=== PATIENT | female | born 1995 | race Caucasian/White ===

== ENCOUNTER 2020-10-27 09:52 | Observation (INO) | payer OTHER ==
[2020-10-27 11:04] VITALS: BP 109/62
[2020-10-27 11:36] VITALS: PULSE 86
== END 2020-10-27 11:20 | disposition home or self-care (01) ==
LOC: MED SURG 09:52
PROVIDERS: ADMIT Family Medicine; ATTEND Family Medicine
DX: O24.419 Gestational diabetes mellitus in pregnancy, unspecified control (principal); Z3A.26 26 weeks gestation of pregnancy
CPT/HCPCS: 59025; G0378

== ENCOUNTER 2020-11-10 10:39 | Observation (INO) | payer OTHER ==
[2020-11-10 10:54] VITALS: BP 124/68; PULSE 87
== END 2020-11-10 11:40 | disposition home or self-care (01) ==
LOC: OB 10:39
PROVIDERS: ADMIT Family Medicine; ATTEND Family Medicine
DX: O24.419 Gestational diabetes mellitus in pregnancy, unspecified control (principal); Z3A.28 28 weeks gestation of pregnancy
CPT/HCPCS: 59025; G0378

== ENCOUNTER 2020-12-12 08:37 | Observation (INO) | payer OTHER ==
[2020-12-12 09:42] VITALS: BP 119/70; PULSE 99
--- NOTE | 2020-12-12 09:47 | XRAY ---
Indication: Size greater than dates. Ultrasound biophysical profile exam performed. Single intrauterine with heart rate 150 BPM. Four-quadrant LANG is 11.7 cm, largest pocket 8.7 cm. 2 points given for breathing, movements, tone, and qualitative amniotic fluid volume. Impression: Total biophysical profile score is 8 out of 8.
== END 2020-12-12 10:12 | disposition home or self-care (01) ==
LOC: EDSTATUS 08:58 → OB 08:59
PROVIDERS: ADMIT Family Medicine; ATTEND Family Medicine
DX: O24.419 Gestational diabetes mellitus in pregnancy, unspecified control (principal); Z3A.33 33 weeks gestation of pregnancy
CPT/HCPCS: 59025; 76818; G0378

== ENCOUNTER 2020-12-19 08:49 | Observation (INO) | payer OTHER ==
[2020-12-19 09:45] VITALS: BP 112/58; PULSE 77; O2SAT 97
--- NOTE | 2020-12-20 10:06 | XRAY ---
Exam: OB biophysical profile with nonstress from 12/19/2020. Comparison: OB biophysical profile with nonstress from 12/12/2020. Indication: Gestational diabetes. Findings: A single live intrauterine fetus is seen with a heart rate of 163 bpm. 4 quadrant LANG measured 13.3 cm, previously 11.7 cm. The placenta appears to be anterior. The fetus scored 2 points for each of the categories including breathing movements, gross body movements, tone, and qualitative amniotic fluid volume for a score of 8 points out of a maximum of 8 points. This is unchanged. Impression: 1. Biophysical profile score is 8 points out of a maximum of 8 points, no change from 12/12/2020. 2. LANG measured 13.3 cm, previously 11.7 cm. 3. heart rate was 163 bpm.
== END 2020-12-19 10:10 | disposition home or self-care (01) ==
LOC: OB 08:49
PROVIDERS: ADMIT Family Medicine; ATTEND Family Medicine
DX: O24.419 Gestational diabetes mellitus in pregnancy, unspecified control (principal); Z3A.34 34 weeks gestation of pregnancy
CPT/HCPCS: 59025; 76818; G0378

== ENCOUNTER 2020-12-26 08:24 | Observation (INO) | payer OTHER ==
[2020-12-26 08:58] VITALS: BP 126/60; PULSE 83; O2SAT 99
--- NOTE | 2020-12-26 09:17 | XRAY ---
Indication: well-being. Ultrasound biophysical profile study performed and compared to December 19, 2020. Again single viable intrauterine with heart rate 155 BPM. Four-quadrant LANG is 14 cm, largest pocket 4.7 cm. 2 points given for breathing, movements, tone, and qualitative amniotic fluid volume. Impression: Total biophysical profile score remains 8 out of 8.
== END 2020-12-26 09:55 | disposition home or self-care (01) ==
LOC: MED SURG 08:24
PROVIDERS: ADMIT Family Medicine; ATTEND Family Medicine
DX: O24.419 Gestational diabetes mellitus in pregnancy, unspecified control (principal); Z3A.35 35 weeks gestation of pregnancy
CPT/HCPCS: 59025; 76818; G0378

== ENCOUNTER 2021-01-02 08:39 | Observation (INO) | payer OTHER ==
[2021-01-02 09:42] VITALS: BP 123/66; PULSE 90
--- NOTE | 2021-01-02 10:05 | XRAY ---
Indication: Gestational diabetes. Ultrasound biophysical profile study performed and compared to December 26, 2020. Again single viable intrauterine with heart rate 148 BPM. Four-quadrant LANG is 15.9 cm, largest pocket 8.1 cm. 2 points given for breathing, movements, tone, and qualitative amniotic fluid volume. Impression: Total biophysical profile score remains 8 out of 8.
== END 2021-01-02 10:20 | disposition home or self-care (01) ==
LOC: OB 08:39
PROVIDERS: ADMIT Family Medicine; ATTEND Family Medicine
DX: O24.419 Gestational diabetes mellitus in pregnancy, unspecified control (principal); Z3A.36 36 weeks gestation of pregnancy
CPT/HCPCS: 59025; 76818; G0378

== ENCOUNTER 2021-01-10 08:38 | Observation (INO) | payer OTHER ==
--- NOTE | 2021-01-10 09:37 | XRAY ---
Indication: Gestational diabetes. Ultrasound biophysical profile study performed and compared to January 02, 2021. Again single viable intrauterine with heart rate 146 BPM. Four-quadrant LANG is 11.3 cm, largest pocket 5.9 cm. 2 points given for breathing, movements, tone, and qualitative amniotic fluid volume. Impression: Total biophysical profile score remains 8 out of 8.
[2021-01-10 09:40] VITALS: BP 110/71; PULSE 110
== END 2021-01-10 10:00 | disposition home or self-care (01) ==
LOC: OB 08:38
PROVIDERS: ADMIT Family Medicine; ATTEND Family Medicine
DX: O24.419 Gestational diabetes mellitus in pregnancy, unspecified control (principal); Z3A.37 37 weeks gestation of pregnancy
CPT/HCPCS: 59025; 76818; G0378

== ENCOUNTER 2021-01-16 09:36 | Inpatient (IN) | payer OTHER ==
[2021-01-18] MEDS ORDERED: Reglan 10 MG/2 ML IV SCH (05:00)
[2021-01-18] MEDS ORDERED: Pepcid 20 MG VIAL IV SCH (05:00)
[2021-01-18] MEDS ORDERED: Lactated Ringers 1,000 ML IV ONE (05:00)
[2021-01-18] MEDS ORDERED: SOD CITRATE-CITRIC ACID SOLN PO SCH (05:00)
[2021-01-18] MEDS ORDERED: Lactated Ringers 1,000 ML IV SCH (05:00)
[2021-01-18] MEDS ORDERED: CEFAZOLIN 2 GM-D5W BAG** 2 GM/50 ML ML IV SCH (05:00)
[2021-01-18 06:38] LABS: Hemoglobin 10.7 gm/dl (12.0-16.0); Mean Cell Volume 91.4 fl (78-100); Mean Corpuscular Hemoglobin 29.6 pg (26-32); Mean Corpuscular Hgb Concent. 32.4 g/dl (32-36); Mean Platelet Volume 11.1 fl (7.5-11.0); Platelet Count 165 K/mm3 (150-450); Red Blood Count 3.61 M/mm3 (4.1-5.4); White Blood Count 6.5 K/mm3 (4.0-10.5)
[2021-01-18 06:43] LABS: INR 0.93 (0.8-3.0)
[2021-01-18 06:45] LABS: PTT 26.7 SECONDS (25.1-36.5)
[2021-01-18 07:05] LABS: Appearance CLOUDY (CLEAR); Bacteria MODERATE /HPF (NEGATIVE); Bilirubin NEGATIVE (NEGATIVE); Blood NEGATIVE Ery/ul (0-5); Epithelial Cells FEW /HPF (FEW); Glucose NEGATIVE (NEGATIVE); Ketones NEGATIVE (NEGATIVE); Leukocyte Esterase TRACE (NEGATIVE); Mucus SLIGHT /HPF (NEGATIVE); Nitrite NEGATIVE (NEGATIVE); Protein,Urine Dip 30 (Negative); Specific Gravity 1.018 (1.005-1.025); Urobilinogen NEGATIVE mg/dL (0-1)
[2021-01-18 07:06] LABS: Amphetamine,Urine NEGATIVE (NEGATIVE); Barbiturate,Urine NEGATIVE (NEGATIVE); Benzodiazepine,Urine NEGATIVE (NEGATIVE); Cocaine,Urine NEGATIVE (NEGATIVE); Methadone,Urine NEGATIVE (NEGATIVE); Opiate,Urine NEGATIVE (NEGATIVE); PCP,Urine NEGATIVE (NEGATIVE); THC,Urine NEGATIVE (NEGATIVE)
[2021-01-18 07:37] LABS: ABO TYPING O; Antibody Screen NEGATIVE (NEGATIVE); RH TYPING NEGATIVE
[2021-01-18] MEDS ORDERED: Astramorph-Pf 5 MG/10 ML ONE (08:02)
[2021-01-18] MEDS ORDERED: Pitocin 10 UNITS/ML ONE (08:48)
[2021-01-18] MEDS ORDERED: Decadron 4 MG INJ ONE ×2 (08:51)
[2021-01-18] MEDS ORDERED: Naropin 0.5% 30 ML VIAL ONE (08:51)
[2021-01-18] MEDS ORDERED: EPINEPHRINE 1MG/ML AMP ONE (08:51)
[2021-01-18] MEDS ORDERED: TORAdol 30 mg Injection ONE (08:51)
[2021-01-18] MEDS ORDERED: DEMEROL 50 MG IV PRN (09:00)
[2021-01-18] MEDS ORDERED: PERCOCET TABLET 5/325MG PO PRN (09:00)
[2021-01-18] MEDS ORDERED: HOLD NARCOTIC ANALGESICS AND SEDATIVES X24 HR MC PRN (09:00)
[2021-01-18] MEDS ORDERED: Nubain 10 MG/ML IV PRN (09:00)
[2021-01-18] MEDS ORDERED: Dulcolax 10 MG SUPP PR PRN (09:00)
[2021-01-18] MEDS ORDERED: TYLENOL EXTRA STRENGTH 500 MG PO PRN (09:00)
[2021-01-18] MEDS ORDERED: BENADRYL 50 MG/ML IV PRN (09:00)
[2021-01-18] MEDS ORDERED: MORPHINE SULFATE 2 MG INJ IV PRN (09:00)
[2021-01-18] MEDS ORDERED: Anucort-HC SUPPOSITORY PR PRN (09:00)
[2021-01-18] MEDS ORDERED: CLARITIN 10 MG PO PRN (09:00)
[2021-01-18] MEDS ORDERED: LANSINOH 40 GM TOP PRN (09:00)
[2021-01-18] MEDS ORDERED: Mylicon 80MG PO PRN (09:00)
[2021-01-18] MEDS ORDERED: CORTISONE 1% CREAM TP PRN (09:00)
[2021-01-18] MEDS ORDERED: Narcan 0.4 MG/ML IV PRN (09:00)
[2021-01-18] MEDS ORDERED: Dermoplast Spray TP PRN (09:00)
[2021-01-18 10:57] LABS: Appearance CLEAR (CLEAR); Bilirubin NEGATIVE (NEGATIVE); Blood NEGATIVE Ery/ul (0-5); Glucose NEGATIVE (NEGATIVE); Ketones NEGATIVE (NEGATIVE); Leukocyte Esterase NEGATIVE (NEGATIVE); Mucus SLIGHT /HPF (NEGATIVE); Nitrite NEGATIVE (NEGATIVE); Protein,Urine Dip NEGATIVE (Negative); RBC 0-2 /HPF (0-2); Specific Gravity 1.018 (1.005-1.025); Urobilinogen NEGATIVE mg/dL (0-1); WBC 0-2 /HPF (0-5)
[2021-01-18 11:03] LABS: Bacteria FEW /HPF (NEGATIVE); Epithelial Cells RARE /HPF (FEW)
--- NOTE | 2021-01-18 11:30 | OP ---
SURGERY DATE/TIME: 01/18/2021 0810 PREOPERATIVE DIAGNOSES: 1) History of prior section. 2) Gestational diabetes, diet controlled. 3) macrosomia. 4) SARS-CoV-2 infection. 5) Desires permanent sterilization. POSTOPERATIVE DIAGNOSES: 1) History of prior section. 2) Gestational diabetes, diet controlled. 3) macrosomia. 4) SARS-CoV-2 infection. 5) Desires permanent sterilization. PROCEDURES: 1) Repeat low transverse section. 2) Bilateral tubal ligation. SURGEON: Michael Infante M.D. ESTIMATED BLOOD LOSS: 300 ml. IV FLUIDS: 2800 ml of crystalloid. URINE OUTPUT: 400 cc of clear straw-colored urine. ANESTHESIA: Spinal by Raymond Marcial CRNA. SPECIMENS: Placenta was sent for pathology. INDICATION: The patient is a 25-year-old 3, para 2 who was scheduled for repeat section. She arrived this morning to the hospital with complaints of mild sinus congestion. No cough. No shortness of breath. No fever. She was found to have COVID-positive swab this morning so she was continued with routine scheduled repeat section today. She had previously consented in the office to bilateral tubal ligation and I again reviewed the permanent nature of tubal ligation and alternative forms of contraception. She elected to proceed with tubal ligation as well. DESCRIPTION OF PROCEDURE: She underwent spinal anesthesia, had a Seaman catheter inserted in the OR and was prepped and draped in the usual sterile fashion with tent up drape was used due to obesity. The patient has a BMI of 40.8 kg per meter/sq. She was prepped and draped. Anesthesia verified to be adequate. A low transverse skin incision by knife and carried down through subcutaneous fat to the level of the fascia. The fascia was nicked on both sides of the midline and extended in horizontal using curved Flower scissors. The superior free edge of the fascia was grasped with Cookie clamps and the underlying rectus muscles were dissected free. The same was repeated inferiorly. The peritoneal cavity was opened and extended horizontal bluntly. Bladder flap was then created and reflected over the lower uterine segment. A horizontal uterine incision was made by knife and carried down to the level of the amniotic membranes which were carefully artificially ruptured. Clear fluid was encountered. Macrosomic viable female infant was delivered from the vertex presentation with a strong cry present immediately after bulb suctioning oropharynx and nares. The cord was clamped and cut. She was handed off to the awaiting nursey team. The placenta was manually extracted and the uterus was exteriorized. The uterine cavity was sponge curetted clean with lap sponge and the uterine incision was closed with #1 chromic in running locked fashion. It was closed in two layers with good hemostasis and good closure. The left fallopian tube was then grasped with a Maik and electrocautery used to make a window in the mesoappendix. The proximal and distal tube segments were then ligated with 0 chromic tie. The interceding tube segment was dissected free with Metzenbaum scissors and the free edge of the lumen was cauterized with electrocautery. The same was repeated on the right side with no complications. Both tube segments were sent for pathology. The posterior cul-de-sac was wiped free of blood and clot and the uterus was returned to the peritoneal cavity. Lateral gutters were wiped free of blood and clot. Again, the uterine incision was noted to be hemostatic with good closure. Next, the fascia was closed with 0 Vicryl in a running fashion. Good closure and good hemostasis were achieved at this level as well. Subcutaneous fat was irrigated with warm, sterile saline and any areas of bleeding were cauterized with electrocautery at that point. Finally, the skin layer was closed with 4-0 undyed Vicryl in a running subcuticular fashion. Steri-Strips and occlusive dressing were placed over the incision. The patient was sent to recovery in good condition. She remained alert and hemodynamically stable through the entirety of the procedure with no respiratory issues. All staff that performed this procedure were wearing N95 face masks and eye protection as indicated.
[2021-01-18] MEDS: Zofran 4 MG/2 ML VIAL IV PRN ×2 (13:43→20:53)
[2021-01-18] MEDS: Dextrose 5%-Lr IV Solution 1000 ML 1,000 ML IV SCH ×3 (18:19→22:26)
[2021-01-18] MEDS: Colace 100 MG PO SCH ×2 (20:48→20:54)
[2021-01-18] MEDS: FERREX 150 PO SCH (20:49)
[2021-01-18] MEDS: MOTRIN 400 MG PO PRN (23:23)
[2021-01-19 06:08] LABS: Absolute Neutrophil Ct (ANC) 5.48 (1.4-6.9); BASOPHIL % 0.2 % (0.0-0.4); Basophil (Absolute #) 0.02 (0-0.4); Eosinophil % 0.2 % (0.00-5.0); Eosinophil (Absolute #) 0.02 (0-0.5); Hematocrit 27.6 % (35-47); Hemoglobin 8.7 gm/dl (12.0-16.0); Lymphocyte (Absolute #) 2.14 (1.0-4.6); Lymphocytes % 25.2 % (24.0-44.0); Mean Cell Volume 92.3 fl (78-100); Mean Corpuscular Hemoglobin 29.1 pg (26-32); Mean Corpuscular Hgb Concent. 31.5 g/dl (32-36); Mean Platelet Volume 11.3 fl (7.5-11.0); Monocyte (Absolute #) 0.83 (0.0-1.3); Monocytes % 9.8 % (0.0-12.0); Neutrophil % 64.6 % (36.0-66.0); Platelet Count 161 K/mm3 (150-450); Red Blood Count 2.99 M/mm3 (4.1-5.4); Red Cell Distribution Width 14.1 % (11.5-14.0); White Blood Count 8.5 K/mm3 (4.0-10.5)
[2021-01-19] MEDS: Dextrose 5%-Lr IV Solution 1000 ML 1,000 ML IV SCH (07:49)
[2021-01-19] MEDS: FERREX 150 PO SCH (10:13)
[2021-01-19] MEDS: Colace 100 MG PO SCH ×2 (10:13→22:46)
[2021-01-19] MEDS: NORCO 5/325 MG PO PRN ×2 (16:26→23:14)
[2021-01-19] MEDS: MOTRIN 400 MG PO PRN (19:41)
[2021-01-20] MEDS: MOTRIN 400 MG PO PRN ×2 (02:30→08:18)
[2021-01-20] MEDS: NORCO 5/325 MG PO PRN (07:17)
[2021-01-20] MEDS: Colace 100 MG PO SCH (08:18)
[2021-01-20] MEDS: FERREX 150 PO SCH (08:18)
--- NOTE | 2021-01-20 08:32 | PCM.DS ---
Discharge Summary Date of Admission: 01/18/21 05:11 Admitting Physician: ANALILIA BECKMAN Consults: Consults on Case 01/18/21 05:00 Notify Anesthesia Provider ROUTINE Notify Physician OF ADMISSION 01/18/21 12:13 Navigation ONCE Primary Care Provider: ANALILIA BECKMAN Allergies Allergies No Known Drug Allergies Allergy (Verified 01/02/21 09:42) Hospital Summary - Hospital Course Hospital Course: patient term IUP with hx of GDM, prior arrived for repeat c/s with BTL, had a week history of congestion and tested covid+. had uneventful surgical, post-op course. doing great, minimal pain, mild lochia, no cough or fever and congestion has resolved. - Vitals & Intake/Output Vital Signs: Vital Signs Temperature 98.6 F 01/20/21 01:16 Pulse Rate 73 01/20/21 01:16 Respiratory Rate 18 01/20/21 01:16 Blood Pressure 127/65 01/20/21 01:16 O2 Sat by Pulse Oximetry 96 01/20/21 01:16 Intake & Output: Intake & Output 01/17/21 01/18/21 01/19/21 01/20/21 11:59 11:59 11:59 11:59 Intake Total 5088 1300 Output Total 1850 Balance 3238 1300 Weight 111.13 kg - Lab Result Diagrams: 01/19/21 05:50 Lab Results-Last 24 Hrs: Lab Results-Last 24 Hours 01/19/21 01/19/21 01/19/21 Range/Units 08:33 12:22 16:30 POC Glucometer 82 82 124 H (74 to 106) mg/dL 01/19/21 Range/Units 23:21 POC Glucometer 91 (74 to 106) mg/dL Micro Results-Entire Visit: Microbiology 01/18/21 08:32 Urine Culture - Final Catherized NO GROWTH 01/18/21 06:49 Urine Culture - Final Clean Catch Midstream MIXED ALEA; 3 OR MORE TYPES. NO PREDOMINANT ORGANISM. NO FURTHER WORKUP. PLEASE RESUBMIT IF CLINICALLY INDICATED. - Procedures and Test Procedures and Tests throughout Hospitalization: Therapy Orders & Screens 01/18/21 10:11 Standby STAT Comment: Diagnosis: Repeat Section Discharge Exam General Appearance: no apparent distress, alert, obese Respiratory Exam: normal breath sounds, lungs clear, No respiratory distress Cardiovascular Exam: regular rate/rhythm, normal heart sounds Gastrointestinal/Abdomen Exam: soft, other (incision clean, dry, intact and looks great) Extremity Exam: normal inspection, normal range of motion Skin Exam: normal color, warm, dry Final Diagnosis/Problem List - Final Discharge Diagnosis/Problem (1) delivery delivered Current Visit: Yes Status: Acute Code(s): O82 - ENCOUNTER FOR DELIVERY WITHOUT INDICATION (2) Gestational diabetes Current Visit: Yes Status: Acute Code(s): O24.419 - GESTATIONAL DIABETES MELLITUS IN , UNSP CONTROL (3) Hx of tubal ligation Current Visit: Yes Status: Acute Code(s): Z98.51 - TUBAL LIGATION STATUS (4) COVID-19 affecting in third trimester Current Visit: Yes Status: Acute Assessment & Plan: symptoms began last saturday so today is day #11, symptoms are resolved. home today with baby Code(s): O98.513 - OTHER VIRAL DISEASES COMPLICATING , THIRD TRIMESTER; U07.1 - COVID-19 - Discharge Disposition: Home, Self-Care Condition: Stable Prescriptions: New Docusate Sodium 100 mg [Colace 100 MG] 100 mg PO BID #60 Hydrocodone/Acetaminophen [Hydrocodone-Acetamin 5-325 mg] 1 tab PO Q6HPRN PRN #28 tablet MDD 4 PRN Reason: Pain Continue Ferrous Sulfate 325 mg [Feosol 325 mg] 325 mg PO DAILY Discontinued Vits W-Ca,Fe,FA(<1Mg) [] 1 each PO DAILY Aspirin 81 gm Chew [Baby Aspirin 81 mg Chew] 81 mg PO DAILY Follow up with: ANALILIA BECKMAN MD [Primary Care Provider] - 1 Week
[2021-01-20 12:33] VITALS: BP 114/64; PULSE 69; O2SAT 97
== END 2021-01-20 11:30 | disposition home or self-care (01) | DRG 783 ==
LOC: EDSTATUS 12:53 → OB 01-18 05:11 → MED SURG 01-18 12:08
PROVIDERS: ADMIT Family Medicine; ATTEND Family Medicine
PROC: 10D00Z1 Extraction of Products of Conception, Low, Open Approach (ICD-10-PCS; principal; 2021-01-18)
PROC: 0U570ZZ Destruction of Bilateral Fallopian Tubes, Open Approach (ICD-10-PCS; 2021-01-18)
DX: O98.52 Other viral diseases complicating childbirth (principal); U07.1 COVID-19; O34.219 Maternal care for unspecified type scar from previous cesarean delivery; O24.420 Gestational diabetes mellitus in childbirth, diet controlled; O36.63X0 Maternal care for excessive fetal growth, third trimester, not applicable or unspecified; Z3A.38 38 weeks gestation of pregnancy; Z37.0 Single live birth; Z30.2 Encounter for sterilization; Z20.822 Contact with and (suspected) exposure to COVID-19
CPT/HCPCS: 36415; 64488; 76937; 76942; 80307; 81001; 82947; 85025; 85027; 85610; 85730; 86850; 86900; 86901; 87086; 88302; 88307; 94799; J0171; J0690; J1100; J1885; J2274; J2405; J2590; J2795; L0625; U0003; A9270-GY

== ENCOUNTER 2023-08-14 01:04 | Observation (INO) | payer OTHER ==
--- NOTE | 2023-08-14 01:28 | ERPHSYRPT ---
- History of Present Illness Time Seen by Provider: 08/14/23 01:20 Source: patient Exam Limitations: no limitations Patient Subjective Stated Complaint: stated fever at home, headache, R flank pain, and vomiting x2 that started yesterday Triage Nursing Assessment: pt ambulatory to bed by self with steady gait, father at bedside, pt afebrile, skin pwd, pt c/o stated fever at home with the highest being 99.6, pounding NEWSOME, and R flank pain since yesterday. pt denies any nausea or diarrhea but states she did throw up twice within the last 12 hrs. Physician History: 27-year-old female presents from her ED for evaluation of right flank pain and vomiting. Patient also has a headache. Symptoms started yesterday. Patient states she had a fever of 99.6 at home. She took Tylenol just prior to arrival and urinated as well. Patient denies history of UTI or kidney stones. Symptoms have been progressive. Symptoms are moderate in intensity. No specific worsening improving factors. Patient voices no other complaints or concerns at this time. Portions of this note were created with voice recognition technology. There may be grammatical, spelling, punctuation or sound alike errors Timing/Duration: today Severity: moderate Modifying Factors: Improves With: nothing Associated Symptoms: denies symptoms Allergies/Adverse Reactions: No Known Drug Allergies Allergy (Verified 08/14/23 01:10) Home Medications: No Reportable Medications [No Reported Medications] 08/14/23 [History] Hx Tetanus, Diphtheria Vaccination/Date Given: Yes Hx Influenza Vaccination/Date Given: No Hx Pneumococcal Vaccination/Date Given: No Immunizations Up to Date: No Travel Risk - International Travel Have you traveled outside of the country in past 3 weeks: No - Emerging Infectious Disease Are you exhibiting symptoms associated with any current EIDs: Yes Symptoms: Vomitting - Review of Systems Constitutional: No Symptoms, No Fever, No Chills Eyes: No Symptoms Ears, Nose, & Throat: No Symptoms Respiratory: No Symptoms, No Cough, No Dyspnea Cardiac: No Symptoms, No Chest Pain, No Edema, No Syncope Abdominal/Gastrointestinal: No Symptoms, No Abdominal Pain, No Nausea, No V omiting, No Diarrhea Genitourinary Symptoms: No Symptoms, No Dysuria Musculoskeletal: No Symptoms, No Back Pain, No Neck Pain Skin: No Symptoms, No Rash Neurological: No Symptoms, No Dizziness, No Focal Weakness, No Sensory Changes Psychological: No Symptoms Endocrine: No Symptoms Hematologic/Lymphatic: No Symptoms Immunological/Allergic: No Symptoms All Other Systems: Reviewed and Negative - Past Medical History Pertinent Past Medical History: Yes Neurological History: Migraines ENT History: No Pertinent History Cardiac History: No Pertinent History Respiratory History: No Pertinent History Endocrine Medical History: No Pertinent History Musculoskeletal History: No Pertinent History GI Medical History: No Pertinent History History: No Pertinent History Psycho-Social History: No Pertinent History Female Reproductive Disorders: No Pertinent History - Past Surgical History Past Surgical History: Yes Neuro Surgical History: No Pertinent History Cardiac: No Pertinent History Respiratory: No Pertinent History Gastrointestinal: Cholecystectomy Genitourinary: No Pertinent History Musculoskeletal: No Pertinent History Female Surgical History: Section - Female History Hx Last Menstrual Period: 08/14/23 Hx Now: No - Social History Smoking Status: Never smoker Exposure to second hand smoke: No Drug Use: none - Nursing Vital Signs Nursing Vital Signs: Initial Vital Signs Temperature 98.9 F 08/14/23 01:11 Pulse Rate 104 H 08/14/23 01:11 Respiratory Rate 18 08/14/23 01:11 Blood Pressure 100/62 08/14/23 01:11 O2 Sat by Pulse Oximetry 97 08/14/23 01:11 Pain Scale Pain Intensity 7 - Physical Exam General Appearance: no apparent distress, alert Eye Exam: PERRL/EOMI, eyes nml inspection Ears, Nose, Throat Exam: normal ENT inspection, TMs normal, pharynx normal, moist mucous membranes Neck Exam: normal inspection, non-tender, supple, full range of motion Respiratory Exam: normal breath sounds, lungs clear, airway intact, No respiratory distress Cardiovascular Exam: regular rate/rhythm, normal heart sounds, normal peripheral pulses Gastrointestinal/Abdomen Exam: soft, normal bowel sounds, tenderness, other (Right CVA tenderness), No mass Back Exam: normal inspection, normal range of motion, No CVA tenderness, No vertebral tenderness Extremity Exam: normal inspection, normal range of motion, pelvis stable Neurologic Exam: alert, oriented x 3, cooperative, normal mood/affect, nml cerebellar function, nml station & gait, sensation nml, No motor deficits Skin Exam: normal color, warm, dry, No rash Lymphatic Exam: No adenopathy SpO2 Interpretation: normal SpO2: 100 O2 Delivery: Room Air - Course Nursing assessment & vital signs reviewed: Yes Ordered Tests: Active Orders 24 hr Category Date Time Status Rat Exterminator STAT Care 08/14/23 01:19 Active IV Insertion STAT Care 08/14/23 01:18 Active Pulse Oximetry (ED) STAT Care 08/14/23 01:18 Active ABDOMEN AND PELVIS W/0 CONTRAS [CT] Stat Exams 08/14/23 01:20 Completed CBC W DIFF Stat Lab 08/14/23 01:40 Completed CMP Stat Lab 08/14/23 01:40 Completed CULTURE,URINE Stat Lab 08/14/23 03:53 Received HCG QUALITATIVE, SERUM Stat Lab 08/14/23 01:40 Completed UA W/RFX UR CULTURE Stat Lab 08/14/23 03:53 Completed Transfer Order Routine Transfer 08/14/23 Ordered Medication Summary Discontinued Medications Generic Name Dose Route Start Last Admin Trade Name Freq PRN Reason Stop Dose Admin Sodium Chloride 1,000 mls @ 999 mls/hr 08/14/23 01:20 08/14/23 02:56 Sodium Chloride 0.9% 1000 Ml IV 08/14/23 02:20 Infused .Q1H1M STA Infusion Sodium Chloride Confirm 08/14/23 01:52 Sodium Chloride 0.9% 1000 Ml Administered 08/14/23 01:53 Dose 1,000 mls @ ud .ROUTE .STK-MED ONE Ketorolac Tromethamine 30 mg 08/14/23 01:25 08/14/23 01:55 Ketorolac Tromethamine 30 Mg/Ml Inj IV 08/14/23 01:26 30 mg STAT ONE Administration Ketorolac Tromethamine Confirm 08/14/23 01:52 Ketorolac Tromethamine 30 Mg/Ml Inj Administered 08/14/23 01:53 Dose 30 mg .ROUTE .STK-MED ONE Lab/Rad Data: Laboratory Result Diagrams 08/14/23 01:40 08/14/23 01:40 Laboratory Results 08/14/23 08/14/23 08/14/23 Range/Units 03:53 01:40 01:40 WBC (4.0-10.5) x10^3/uL RBC (4.1-5.4) x10^6/uL Hgb (12.0-16.0) g/dL Hct (35-47) % MCV (78-100) fL MCH (26-32) pg MCHC (32-36) g/dL RDW (11.5-14.0) % Plt Count (150-450) x10^3/uL MPV (7.5-11.0) fL Gran % (36.0-66.0) % Immature Gran % (Auto) (0.00-0.4) % Nucleat RBC Rel Count (0.00-0.1) % Eos # (Auto) (0-0.5) x10^3/uL Immature Gran # (Auto) (0.00-0.03) x10^3u/L Absolute Lymphs (auto) (1.0-4.6) x10^3/uL Absolute Monos (auto) (0.0-1.3) x10^3/uL Absolute Nucleated RBC (0.00-0.01) x10^3u/L Lymphocytes % (24.0-44.0) % Monocytes % (0.0-12.0) % Eosinophils % (0.00-5.0) % Basophils % (0.0-0.4) % Absolute Granulocytes (1.4-6.9) x10^3/uL Basophils # (0-0.4) x10^3/uL Sodium 138 (135-145) mmol/L Potassium 3.5 (3.5-5.1) mmol/L Chloride 104 (98-107) mmol/L Carbon Dioxide 25 (22-30) mmol/L Anion Gap 11.9 (5-15) MEQ/L BUN 12 (7-17) mg/dL Creatinine 0.76 (0.52-1.04) mg/dL Estimated GFR 108.7 ML/MIN Glucose 100 (74-106) mg/dL Calcium 9.1 (8.4-10.2) mg/dL Total Bilirubin 0.20 (0.2-1.3) mg/dL AST 27 (14-36) U/L ALT 27 (0-35) U/L Alkaline Phosphatase 74 (38-126) U/L Serum Total Protein 7.8 (6.3-8.2) g/dL Albumin 4.1 (3.5-5.0) g/dL Serum HCG, Qual NEGATIVE (NEGATIVE) Urine Color Yellow (Yellow) Urine Appearance Cloudy A (Clear) Urine pH 6.0 (4.6-8.0) Ur Specific [place] 1.020 (1.005-1.030) Urine Protein Trace A (Negative) Urine Glucose (UA) Negative (Negative) mg/dL Urine Ketones Negative (Negative) Urine Blood Trace (Negative) Urine Nitrite Positive A (Negative) Urine Bilirubin Negative (Negative) Urine Urobilinogen 1.0 A (0.2) mg/dL Ur Leukocyte Esterase Large A (Negative) U Hyaline Cast (Auto) NONE SEEN (0-2) /LPF Urine Microscopic RBC 0-2 (0-5) /HPF Urine Microscopic WBC >100 A (0-5) /HPF Ur Epithelial Cells None Seen (None Seen) /HPF Urine Bacteria Many A (None Seen) /HPF Urine Culture Reflexed YES (NO) 08/14/23 Range/Units 01:40 WBC 7.3 (4.0-10.5) x10^3/uL RBC 3.63 L (4.1-5.4) x10^6/uL Hgb 10.6 L (12.0-16.0) g/dL Hct 32.6 L (35-47) % MCV 89.8 (78-100) fL MCH 29.2 (26-32) pg MCHC 32.5 (32-36) g/dL RDW 13.1 (11.5-14.0) % Plt Count 235 (150-450) x10^3/uL MPV 10.2 (7.5-11.0) fL Gran % 73.9 H (36.0-66.0) % Immature Gran % (Auto) 0.5 H (0.00-0.4) % Nucleat RBC Rel Count 0.0 (0.00-0.1) % Eos # (Auto) 0.03 (0-0.5) x10^3/uL Immature Gran # (Auto) 0.04 H (0.00-0.03) x10^3u/L Absolute Lymphs (auto) 1.16 (1.0-4.6) x10^3/uL Absolute Monos (auto) 0.66 (0.0-1.3) x10^3/uL Absolute Nucleated RBC 0.00 (0.00-0.01) x10^3u/L Lymphocytes % 15.8 L (24.0-44.0) % Monocytes % 9.0 (0.0-12.0) % Eosinophils % 0.4 (0.00-5.0) % Basophils % 0.4 (0.0-0.4) % Absolute Granulocytes 5.40 (1.4-6.9) x10^3/uL Basophils # 0.03 (0-0.4) x10^3/uL Sodium (135-145) mmol/L Potassium (3.5-5.1) mmol/L Chloride (98-107) mmol/L Carbon Dioxide (22-30) mmol/L Anion Gap (5-15) MEQ/L BUN (7-17) mg/dL Creatinine (0.52-1.04) mg/dL Estimated GFR ML/MIN Glucose (74-106) mg/dL Calcium (8.4-10.2) mg/dL Total Bilirubin (0.2-1.3) mg/dL AST (14-36) U/L ALT (0-35) U/L Alkaline Phosphatase (38-126) U/L Serum Total Protein (6.3-8.2) g/dL Albumin (3.5-5.0) g/dL Serum HCG, Qual (NEGATIVE) Urine Color (Yellow) Urine Appearance (Clear) Urine pH (4.6-8.0) Ur Specific [place] (1.005-1.030) Urine Protein (Negative) Urine Glucose (UA) (Negative) mg/dL Urine Ketones (Negative) Urine Blood (Negative) Urine Nitrite (Negative) Urine Bilirubin (Negative) Urine Urobilinogen (0.2) mg/dL Ur Leukocyte Esterase (Negative) U Hyaline Cast (Auto) (0-2) /LPF Urine Microscopic RBC (0-5) /HPF Urine Microscopic WBC (0-5) /HPF Ur Epithelial Cells (None Seen) /HPF Urine Bacteria (None Seen) /HPF Urine Culture Reflexed (NO) - Progress Progress: improved Progress Note: 27-year-old female presents to our ED for evaluation of flank pain and a low- grade fever. Physical exam reveals right CVA tenderness. Urinalysis reveals a urinary tract infection. CT abdomen pelvis reveals an inflamed right kidney. Antibiotics administered. IV fluids administered. Patient reassessed. She is comfortable at this time. Patient will require hospitalization for further evaluation and treatment. Case discussed with Dr. Natarajan at 5:32 AM. Patient accepted for admission. Plan of care discussed with patient. She agrees to admission to [facility] for further evaluation and treatment. Portions of this note were created with voice recognition technology. There may be grammatical, spelling, punctuation or sound alike errors Complexity problem addressed is moderate acute complicated No critical care time Complexity of data reviewed and analyzed extensive. Test ordered test reviewed. Results analyzed and correlated clinically with history and physical exam. Risk of complication and or risk of morbidity/mortality of patient management is high. Patient requires hospitalization for further evaluation and treatment. Vital stable. Time spent to admit patient approximately 20 minutes. Plan of care discussed with patient. Patient agrees to admission to [facility] for further evaluation and treatment. Portions of this note were created with voice recognition technology. There may be grammatical, spelling, punctuation or sound alike errors 08/14/23 05:37 Counseled pt/family regarding: lab results, diagnosis, rad results - Departure Departure Disposition: Observation Clinical Impression: Urinary tract infection, Pyelonephritis, Flank pain Condition: Stable Critical Care Time: No Referrals: ANALILIA BECKMAN MD [Primary Care Provider] - Follow up/PCP as directed
[2023-08-14 01:47] LABS: BASOPHIL % 0.4 % (0.0-0.4); Basophil (Absolute #) 0.03 x10^3/uL (0-0.4); Eosinophil % 0.4 % (0.00-5.0); Eosinophil (Absolute #) 0.03 x10^3/uL (0-0.5); Hematocrit 32.6 % (35-47); Hemoglobin 10.6 g/dL (12.0-16.0); IMMATURE GRAN # 0.04 x10^3u/L (0.00-0.03); IMMATURE GRAN % 0.5 % (0.00-0.4); Lymphocyte (Absolute #) 1.16 x10^3/uL (1.0-4.6); Lymphocytes % 15.8 % (24.0-44.0); Mean Cell Volume 89.8 fL (78-100); Mean Corpuscular Hemoglobin 29.2 pg (26-32); Mean Corpuscular Hgb Concent. 32.5 g/dL (32-36); Mean Platelet Volume 10.2 fL (7.5-11.0); Monocyte (Absolute #) 0.66 x10^3/uL (0.0-1.3); Neutrophil % 73.9 % (36.0-66.0); Platelet Count 235 x10^3/uL (150-450); Red Blood Count 3.63 x10^6/uL (4.1-5.4); Red Cell Distribution Width 13.1 % (11.5-14.0); White Blood Count 7.3 x10^3/uL (4.0-10.5)
[2023-08-14] MEDS ORDERED: TORAdol 30 mg Injection ONE (01:52)
[2023-08-14] MEDS ORDERED: Sodium Chloride 0.9% 1000 ML 1,000 ML ONE (01:52)
[2023-08-14] MEDS: TORAdol 30 mg Injection IV ONE (01:55)
[2023-08-14] MEDS: Sodium Chloride 0.9% 1000 ML 1,000 ML IV STA (01:55)
[2023-08-14 01:59] LABS: HCG SERUM TEST NEGATIVE (NEGATIVE)
[2023-08-14 02:05] LABS: ALBUMIN 4.1 g/dL (3.5-5.0); ANION GAP 11.9 MEQ/L (5-15); BILIRUBIN,TOTAL 0.2 mg/dL (0.2-1.3); Calcium 9.1 mg/dL (8.4-10.2); Creatinine 1 0.76 mg/dL (0.52-1.04); EST GLOMERULAR FILTRATION RATE 108.7 ML/MIN; Potassium 3.5 mmol/L (3.5-5.1); Total Protein 7.8 g/dL (6.3-8.2)
--- NOTE | 2023-08-14 03:20 | XRAY ---
CLINICAL HISTORY: pain COMPARISON: None TECHNIQUE: Contiguous axial images were obtained from the level of the diaphragm to the pubic symphysis without intravenous or oral contrast. Coronal and sagittal reconstructions were likewise performed and indicated to increase the sensitivity for detecting clinically relevant pathology. CT scan was performed according to ALARA (as low as reasonably achievable). FINDINGS: The visualized lung bases are clear. Evaluation of the abdominal and pelvic visceral organs is limited without intravenous contrast. The unenhanced liver, spleen, pancreas, and adrenal glands are grossly unremarkable. Post-cholecystectomy status. Mild right perinephric fat stranding seen with prominent renal pelvis and ureter, however no obvious radiodense calculus. The kidneys are normal in size and attenuation without obvious calcification. There is no left hydronephrosis or perinephric stranding. The left ureter is normal in caliber. No adenopathy or fluid collections are seen. No evidence of focal or diffuse bowel wall thickening or evidence of bowel obstruction is seen. The appendix is visualized in the right lower quadrant and appears within normal limits. The aorta is normal in caliber. The urinary bladder is normal in contour. Pelvic viscera are grossly unremarkable. No aggressive appearing osseous lesions are identified. IMPRESSION: 1. Mild right perinephric fat stranding with prominent right renal pelvis and ureter. Differentials include recently passed calculus and infection. Electronically Signed by: Lyle Cano MD. (08/14/2023 03:15:39 EDT)
[2023-08-14 04:03] LABS: Appearance Cloudy (Clear); Bacteria Many /HPF (None Seen); Bilirubin Negative (Negative); Blood Trace (Negative); Epithelial Cells None Seen /HPF (None Seen); Glucose, Urine Negative (Negative); Hyaline Casts NONE SEEN /LPF (0-2); Ketones Negative (Negative); Leukocyte Esterase Large (Negative); Nitrite Positive (Negative); Protein,Urine Dip Trace (Negative); RBC 0-2 /HPF (0-5); WBC >100 /HPF (0-5)
[2023-08-14 04:08] LABS: ADD URINE CULTURE? YES (NO)
--- NOTE | 2023-08-14 05:58 | PCM.HP ---
History of Present Illness - Chief Complaint Chief Complaint: R flank pain Date: 08/14/23 History of Present Illness: Ms. TABARES is a 27 year old female without any past medical history who presents to the hospital with complaints of fever of 99.6, headache and severe R sided flank pain associated with a couple episodes of nausea and vomiting. She was found to have a UTI with positive nitrites/leukocytes. CT scan demonstrated either a recently passed kidney stone versus pyelonephritis. She was started on antibiotics and recommended for admission. She is resting in bed, awake/alert. No current fever/chills. No chest pain or shortness of breath. No nausea, vomiting or diarrhea. She has not used any NSAIDs or had exposure to contrast. - Review of Systems Constitutional: Fever, Chills Eyes: No Vision Changes Ears, Nose, & Throat: No Throat Swelling Respiratory: No Cough, No Orthopnea, No Short Of Breath Cardiac: No Chest Pain, No Edema, No Palpitations Abdominal/Gastrointestinal: Nausea, Vomiting, No Abdominal Pain Genitourinary Symptoms: Dysuria, Urgency, No Frequency, No Hematuria Musculoskeletal: No Back Pain, No Neck Pain Skin: No Cellulitis, No Rash Neurological: No Focal Weakness, No Gait Changes Psychological: No Suicidal Ideations Endocrine: No Polyuria, No Polydipsia Medications & Allergies Home Medications: Home Medication List No Reportable Medications [No Reported Medications] 08/14/23 [History Confirmed 08/14/23] Allergies/Adverse Reactions: Allergies Allergy/AdvReac Type Severity Reaction Status Date / Time No Known Drug Allergies Allergy Verified 08/14/23 01:10 - Past Medical History Past Medical History: Yes Neurological History: Migraines ENT History: No Pertinent History Cardiac History: No Pertinent History Respiratory History: No Pertinent History Endocrine Medical History: No Pertinent History Musculoskelatal History: No Pertinent History GI Medical History: No Pertinent History History: No Pertinent History Pyscho-Social History: No Pertinent History Reproductive Disorders: No Pertinent History - Female History Hx Last Menstrual Period: 08/14/23 Are you now?: No - Past Surgical History Past Surgical History: Yes Neuro Surgical History: No Pertinent History Cardiac History: No Pertinent History Respiratory Surgery: No Pertinent History GI Surgical History: Cholecystectomy Genitourinary Surgical Hx: No Pertinent History Musculskeletal Surgical Hx: No Pertinent History Female Surgical History: Section - Social History Smoking Status: Never smoker Exposure to second hand smoke: No Alcohol: None Drug Use: none - Social Determinants of Health Will the patient participate in the screening: Yes Do you worry about a steady place to live?: No Do you have any problems with any of the following?: No known problems In the past 12 months,have you had to go without utilities?: No Have you or anyone in your house had to go without enough: No Transportation Issues: No Has anyone in your support network made you feel unsafe?: No - Physical Exam Vital Signs: Vital Signs - 24 hr Temp Pulse Resp BP BP Pulse Ox 08/14/23 05:46 100 08/14/23 05:30 87 16 93/68 97 08/14/23 05:00 85 18 95/60 98 08/14/23 04:30 83 17 94/67 99 08/14/23 04:00 86 18 109/62 97 08/14/23 03:30 85 16 93/60 97 08/14/23 03:00 82 20 91/48 95 08/14/23 02:30 84 19 98/56 96 08/14/23 02:05 98.9 F 107 H 18 104/60 97 08/14/23 02:00 104/60 97 08/14/23 01:30 93/58 96 08/14/23 01:20 100 08/14/23 01:13 100/62 08/14/23 01:11 98.9 F 104 H 18 100/62 97 General Appearance: mild distress Neurologic Exam: alert, oriented x 3 Ears, Nose, Throat Exam: dry mucous membranes Neck Exam: supple Respiratory Exam: No respiratory distress Cardiovascular Exam: regular rate/rhythm Gastrointestinal/Abdomen Exam: soft, tenderness, guarding Back Exam: CVA tenderness Extremity Exam: No pedal edema, No swelling Skin Exam: normal color, No rash Results - Labs Lab/Micro Results: Lab Results-Last 24 Hours 08/14/23 08/14/23 08/14/23 Range/Units 01:40 01:40 01:40 WBC 7.3 (4.0-10.5) x10^3/uL RBC 3.63 L (4.1-5.4) x10^6/uL Hgb 10.6 L (12.0-16.0) g/dL Hct 32.6 L (35-47) % MCV 89.8 (78-100) fL MCH 29.2 (26-32) pg MCHC 32.5 (32-36) g/dL RDW 13.1 (11.5-14.0) % Plt Count 235 (150-450) x10^3/uL MPV 10.2 (7.5-11.0) fL Gran % 73.9 H (36.0-66.0) % Immature Gran % (Auto) 0.5 H (0.00-0.4) % Nucleat RBC Rel Count 0.0 (0.00-0.1) % Eos # (Auto) 0.03 (0-0.5) x10^3/uL Immature Gran # (Auto) 0.04 H (0.00-0.03) x10^3u/L Absolute Lymphs (auto) 1.16 (1.0-4.6) x10^3/uL Absolute Monos (auto) 0.66 (0.0-1.3) x10^3/uL Absolute Nucleated RBC 0.00 (0.00-0.01) x10^3u/L Lymphocytes % 15.8 L (24.0-44.0) % Monocytes % 9.0 (0.0-12.0) % Eosinophils % 0.4 (0.00-5.0) % Basophils % 0.4 (0.0-0.4) % Absolute Granulocytes 5.40 (1.4-6.9) x10^3/uL Basophils # 0.03 (0-0.4) x10^3/uL Sodium 138 (135-145) mmol/L Potassium 3.5 (3.5-5.1) mmol/L Chloride 104 (98-107) mmol/L Carbon Dioxide 25 (22-30) mmol/L Anion Gap 11.9 (5-15) MEQ/L BUN 12 (7-17) mg/dL Creatinine 0.76 (0.52-1.04) mg/dL Estimated GFR 108.7 ML/MIN Glucose 100 (74-106) mg/dL Calcium 9.1 (8.4-10.2) mg/dL Total Bilirubin 0.20 (0.2-1.3) mg/dL AST 27 (14-36) U/L ALT 27 (0-35) U/L Alkaline Phosphatase 74 (38-126) U/L Serum Total Protein 7.8 (6.3-8.2) g/dL Albumin 4.1 (3.5-5.0) g/dL Serum HCG, Qual NEGATIVE (NEGATIVE) Urine Color (Yellow) Urine Appearance (Clear) Urine pH (4.6-8.0) Ur Specific Lyman (1.005-1.030) Urine Protein (Negative) Urine Glucose (UA) (Negative) mg/dL Urine Ketones (Negative) Urine Blood (Negative) Urine Nitrite (Negative) Urine Bilirubin (Negative) Urine Urobilinogen (0.2) mg/dL Ur Leukocyte Esterase (Negative) U Hyaline Cast (Auto) (0-2) /LPF Urine Microscopic RBC (0-5) /HPF Urine Microscopic WBC (0-5) /HPF Ur Epithelial Cells (None Seen) /HPF Urine Bacteria (None Seen) /HPF Urine Culture Reflexed (NO) 08/14/23 Range/Units 03:53 WBC (4.0-10.5) x10^3/uL RBC (4.1-5.4) x10^6/uL Hgb (12.0-16.0) g/dL Hct (35-47) % MCV (78-100) fL MCH (26-32) pg MCHC (32-36) g/dL RDW (11.5-14.0) % Plt Count (150-450) x10^3/uL MPV (7.5-11.0) fL Gran % (36.0-66.0) % Immature Gran % (Auto) (0.00-0.4) % Nucleat RBC Rel Count (0.00-0.1) % Eos # (Auto) (0-0.5) x10^3/uL Immature Gran # (Auto) (0.00-0.03) x10^3u/L Absolute Lymphs (auto) (1.0-4.6) x10^3/uL Absolute Monos (auto) (0.0-1.3) x10^3/uL Absolute Nucleated RBC (0.00-0.01) x10^3u/L Lymphocytes % (24.0-44.0) % Monocytes % (0.0-12.0) % Eosinophils % (0.00-5.0) % Basophils % (0.0-0.4) % Absolute Granulocytes (1.4-6.9) x10^3/uL Basophils # (0-0.4) x10^3/uL Sodium (135-145) mmol/L Potassium (3.5-5.1) mmol/L Chloride (98-107) mmol/L Carbon Dioxide (22-30) mmol/L Anion Gap (5-15) MEQ/L BUN (7-17) mg/dL Creatinine (0.52-1.04) mg/dL Estimated GFR ML/MIN Glucose (74-106) mg/dL Calcium (8.4-10.2) mg/dL Total Bilirubin (0.2-1.3) mg/dL AST (14-36) U/L ALT (0-35) U/L Alkaline Phosphatase (38-126) U/L Serum Total Protein (6.3-8.2) g/dL Albumin (3.5-5.0) g/dL Serum HCG, Qual (NEGATIVE) Urine Color Yellow (Yellow) Urine Appearance Cloudy A (Clear) Urine pH 6.0 (4.6-8.0) Ur Specific Lyman 1.020 (1.005-1.030) Urine Protein Trace A (Negative) Urine Glucose (UA) Negative (Negative) mg/dL Urine Ketones Negative (Negative) Urine Blood Trace (Negative) Urine Nitrite Positive A (Negative) Urine Bilirubin Negative (Negative) Urine Urobilinogen 1.0 A (0.2) mg/dL Ur Leukocyte Esterase Large A (Negative) U Hyaline Cast (Auto) NONE SEEN (0-2) /LPF Urine Microscopic RBC 0-2 (0-5) /HPF Urine Microscopic WBC >100 A (0-5) /HPF Ur Epithelial Cells None Seen (None Seen) /HPF Urine Bacteria Many A (None Seen) /HPF Urine Culture Reflexed YES (NO) - Radiology Impressions Radiology Exams & Impressions: Radiology Procedures Category Date Time Status ABDOMEN AND PELVIS W/0 CONTRAS [CT] Stat Exams 08/14/23 01:20 Completed Assessment/Plan (1) Flank pain Current Visit: Yes Status: Acute Assessment & Plan: Likely from passed kidney stone versus pyelonephritis given UTI 1. Admit to hospital 2. IVFs 3. Empiric antibiotics, f/u cultures 4. Pain control 5. DVT/GI prophylaxis 6. Follow I/Os 7. Watch electrolytes, kidney function Code(s): R10.9 - UNSPECIFIED ABDOMINAL PAIN (2) Anemia Current Visit: Yes Status: Acute Assessment & Plan: Likely from iron deficiency, Hgb 10.6 1. Check iron profile, b12, folate 2. Trend H/H Code(s): D64.9 - ANEMIA, UNSPECIFIED Telemedicine Encounter - Telemedicine Encounter Telemedicine Encounter: The entirety of this encounter was performed via Telemedicine"
[2023-08-14] MEDS ORDERED: TYLENOL 325 MG PO PRN (06:35)
[2023-08-14] MEDS ORDERED: TORAdol 30 mg Injection IV PRN (06:38)
[2023-08-14] MEDS: Sodium Chloride 0.9% 1000 ML 1,000 ML IV SCH (07:01)
[2023-08-14] MEDS: ROCEPHIN 1 GM / 100 ML NaCl 1 GM/100 ML IVPB IV SCH (07:02)
[2023-08-14] MEDS: Hydromorphone 1 mg/ml Injection IV PRN (07:40)
[2023-08-14 09:58] LABS: Iron 27 ug/dL (37-170); Iron Saturation 9 % (20-39); TIBC 312 ug/dL (265-462)
[2023-08-14] MEDS: NORCO 5/325 MG PO PRN (10:03)
[2023-08-14] MEDS: Reglan 10 MG/2 ML IV ONE (10:04)
[2023-08-14] MEDS: BENADRYL 50 MG/ML IV ONE (10:04)
[2023-08-14] MEDS: Protonix 40MG Tablet PO SCH (10:06)
[2023-08-14] MEDS: ENOXAPARIN SODIUM SQ SCH (10:08)
[2023-08-14 10:54] LABS: Ferritin 71.8 ng/mL (6.24-137); Folate (Folic Acid) 6.77 ng/mL (2.76 - >20)
[2023-08-14] MEDS: TYLENOL 325 MG PO PRN (16:47)
[2023-08-15] MEDS: Reglan 10 MG/2 ML IV ONE (04:13)
[2023-08-15] MEDS: BENADRYL 50 MG/ML IV ONE (04:14)
[2023-08-15 04:50] VITALS: RESP 16
[2023-08-15 05:03] LABS: Absolute Neutrophil Ct (ANC) 3.58 x10^3/uL (1.4-6.9); BASOPHIL % 0.4 % (0.0-0.4); Basophil (Absolute #) 0.02 x10^3/uL (0-0.4); Eosinophil % 0.4 % (0.00-5.0); Eosinophil (Absolute #) 0.02 x10^3/uL (0-0.5); Hematocrit 31.8 % (35-47); Hemoglobin 10.2 g/dL (12.0-16.0); IMMATURE GRAN # 0.01 x10^3u/L (0.00-0.03); IMMATURE GRAN % 0.2 % (0.00-0.4); Lymphocyte (Absolute #) 0.91 x10^3/uL (1.0-4.6); Lymphocytes % 17.7 % (24.0-44.0); Mean Cell Volume 90.3 fL (78-100); Mean Corpuscular Hgb Concent. 32.1 g/dL (32-36); Mean Platelet Volume 10.1 fL (7.5-11.0); Monocyte (Absolute #) 0.61 x10^3/uL (0.0-1.3); Monocytes % 11.8 % (0.0-12.0); Neutrophil % 69.5 % (36.0-66.0); Platelet Count 188 x10^3/uL (150-450); Red Blood Count 3.52 x10^6/uL (4.1-5.4); Red Cell Distribution Width 13.2 % (11.5-14.0); White Blood Count 5.2 x10^3/uL (4.0-10.5)
[2023-08-15 05:20] LABS: ANION GAP 10.5 MEQ/L (5-15); Calcium 8.3 mg/dL (8.4-10.2); Creatinine 1 0.56 mg/dL (0.52-1.04); EST GLOMERULAR FILTRATION RATE 126.6 ML/MIN; Potassium 3.6 mmol/L (3.5-5.1)
[2023-08-15] MEDS ORDERED: TYLENOL 325 MG PO PRN (08:28)
[2023-08-15] MEDS: ROCEPHIN 1 GM / 100 ML NaCl 1 GM/100 ML IVPB IV SCH (08:30)
[2023-08-15] MEDS ORDERED: TYLENOL EXTRA STRENGTH 500 MG PO PRN (09:04)
[2023-08-15] MEDS: MOTRIN 400 MG PO ONE ×2 (09:17→09:25)
[2023-08-15] MEDS: TYLENOL EXTRA STRENGTH 500 MG PO ONE (09:17)
[2023-08-15] MEDS: Miralax Powder 17GM PACKET PO ONE (09:20)
--- NOTE | 2023-08-15 11:18 | PCM.DS ---
Discharge Summary Date of Admission: 08/14/23 06:31 Date of Discharge: 08/15/23 Admitting Physician: AMY GOMEZ MD Primary Care Provider: ANALILIA BECKMAN KLELY Allergies Allergies No Known Drug Allergies Allergy (Verified 08/14/23 06:45) Hospital Summary - Hospital Course Hospital Course: Ms. TABARES is a 27 year old female without any past medical history who presents to the hospital with complaints of fever of 99.6, headache and severe R sided flank pain associated with a couple episodes of nausea and vomiting. She was found to have a UTI with positive nitrites/leukocytes. CT scan demonstrated either a recently passed kidney stone versus pyelonephritis. She was started on antibiotics and recommended for admission. She had a H/A yesterday and today. She requested 800mg IBP and 1,00mg of Tylenol as she explained this usually works well at home for her. UC came back gram negative with sensitivity pending. She explaines she otherwise feels better and would like to go home today. She denies CP, SOB, back pain, N/V/D. - Vitals & Intake/Output Vital Signs: Vital Signs Temperature 99.8 F 08/15/23 07:30 Pulse Rate 90 08/15/23 07:30 Respiratory Rate 16 08/15/23 07:30 Blood Pressure 98/55 08/15/23 07:30 O2 Sat by Pulse Oximetry 93 L 08/15/23 07:30 Intake & Output: Intake & Output 08/12/23 08/13/23 08/14/23 08/15/23 11:59 11:59 11:59 11:59 Intake Total 240 3280 Output Total 200 Balance 40 3280 Weight 94 kg - Lab Result Diagrams: 08/15/23 04:44 08/15/23 04:44 Lab Results-Last 24 Hrs: Lab Results-Last 24 Hours 08/15/23 08/15/23 Range/Units 04:44 04:44 WBC 5.2 (4.0-10.5) x10^3/uL RBC 3.52 L (4.1-5.4) x10^6/uL Hgb 10.2 L (12.0-16.0) g/dL Hct 31.8 L (35-47) % MCV 90.3 (78-100) fL MCH 29.0 (26-32) pg MCHC 32.1 (32-36) g/dL RDW 13.2 (11.5-14.0) % Plt Count 188 (150-450) x10^3/uL MPV 10.1 (7.5-11.0) fL Gran % 69.5 H (36.0-66.0) % Immature Gran % (Auto) 0.2 (0.00-0.4) % Nucleat RBC Rel Count 0.0 (0.00-0.1) % Eos # (Auto) 0.02 (0-0.5) x10^3/uL Immature Gran # (Auto) 0.01 (0.00-0.03) x10^3u/L Absolute Lymphs (auto) 0.91 L (1.0-4.6) x10^3/uL Absolute Monos (auto) 0.61 (0.0-1.3) x10^3/uL Absolute Nucleated RBC 0.00 (0.00-0.01) x10^3u/L Lymphocytes % 17.7 L (24.0-44.0) % Monocytes % 11.8 (0.0-12.0) % Eosinophils % 0.4 (0.00-5.0) % Basophils % 0.4 (0.0-0.4) % Absolute Granulocytes 3.58 (1.4-6.9) x10^3/uL Basophils # 0.02 (0-0.4) x10^3/uL Sodium 137 (135-145) mmol/L Potassium 3.6 (3.5-5.1) mmol/L Chloride 107 (98-107) mmol/L Carbon Dioxide 22 (22-30) mmol/L Anion Gap 10.5 (5-15) MEQ/L BUN 10 (7-17) mg/dL Creatinine 0.56 (0.52-1.04) mg/dL Estimated GFR 126.6 ML/MIN Glucose 141 H (74-106) mg/dL Calcium 8.3 L (8.4-10.2) mg/dL Micro Results-Entire Visit: Microbiology 08/14/23 03:53 Urine Culture - Preliminary Clean Catch Midstream GRAM NEGATIVE ID AND SENSITIVITY PENDING - Radiology Exams Ordered Rad Exams-Entire Visit: Radiology Procedures Category Date Time Status ABDOMEN AND PELVIS W/0 CONTRAS [CT] Stat Exams 04/10/24 01:20 Completed Discharge Exam General Appearance: no apparent distress, alert Neurologic Exam: alert, oriented x 3, cooperative, normal mood/affect, nml cerebellar function, sensation nml, No motor deficits Eye Exam: PERRL, EOMI, eyes nml inspection Ears, Nose, Throat Exam: normal ENT inspection, pharynx normal, moist mucous membranes Neck Exam: normal inspection, non-tender, supple, full range of motion Respiratory Exam: normal breath sounds, lungs clear, No respiratory distress Cardiovascular Exam: regular rate/rhythm, normal heart sounds Gastrointestinal/Abdomen Exam: soft, No tenderness, No mass Pelvic Exam: deferred Rectal Exam: deferred Back Exam: normal inspection, normal range of motion, No CVA tenderness, No vertebral tenderness Extremity Exam: normal inspection, normal range of motion Skin Exam: normal color, warm, dry Final Diagnosis/Problem List - Final Discharge Diagnosis/Problem (1) Pyelonephritis Current Visit: Yes Status: Acute Assessment & Plan: - IVF - Antibiotics - UC gram negative, sensitivity pending Code(s): N12 - TUBULO-INTERSTITIAL NEPHRITIS, NOT SPCF ACUTE OR CHRONIC (2) Headache Current Visit: Yes Status: Acute Assessment & Plan: - 08/13 - reglan and benadryl 08/14 - Tyleneol and IBP combo per pt request. Code(s): R51.9 - HEADACHE, UNSPECIFIED (3) Anemia Current Visit: Yes Status: Acute Assessment & Plan: - Hgb stable 10.2 - f/u Op with PCP - + iron deficiency anemia Code(s): D64.9 - ANEMIA, UNSPECIFIED (4) Flank pain Current Visit: Yes Status: Acute Code(s): R10.9 - UNSPECIFIED ABDOMINAL PAIN (5) Obesity (BMI 30.0-34.9) Current Visit: Yes Status: Chronic Assessment & Plan: - advised diet and exercise control Code(s): E66.9 - OBESITY, UNSPECIFIED - Discharge Discharge Date: 08/15/23 Disposition: Home, Self-Care Condition: Stable Prescriptions: Continue Exenatide Microspheres [Bydureon Bcise] 2 mg SQ WEEKLY Instructions: Anemia Caused by Low Iron, Adult (DC) Follow up with: ANALILIA BECKMAN MD [Primary Care Provider] - 08/19/23 10:45 am
[2023-08-15 11:38] VITALS: BP 87/48; PULSE 95; TEMP 98.3; O2SAT 98
== END 2023-08-15 13:00 | disposition home or self-care (01) ==
LOC: ED 01:04 → MED SURG 06:31
PROVIDERS: ADMIT Internal Medicine Nephrology; ATTEND Internal Medicine Nephrology
DX: N12 Tubulo-interstitial nephritis, not specified as acute or chronic (principal); R51.9 Headache, unspecified; D64.9 Anemia, unspecified; R10.9 Unspecified abdominal pain; N39.0 Urinary tract infection, site not specified; E66.9 Obesity, unspecified
CPT/HCPCS: 36000; 36415; 74176; 80048; 80053; 81001; 82607; 82728; 82746; 83540; 83550; 84703; 85025; 87077; 87086; 87186; 93041; 93268; 94760; 96374; 99285; G0378; Q3014; J0696; J1170; J1200; J1650; J1885; A9270-GY

== ENCOUNTER 2024-08-09 20:31 | Emergency (ER) | payer OTHER ==
[2024-08-09 20:47] VITALS: PULSE 86; RESP 18
--- NOTE | 2024-08-09 20:58 | ERPHSYRPT ---
- History of Present Illness Time Seen by Provider: 08/09/24 20:47 Source: patient Exam Limitations: no limitations Patient Subjective Stated Complaint: pt reports approx 2 hrs DOG BATHER she slipped in the mud and fell onto her right knee, states she landed on concrete. pt states she is unable to bend her knee. Triage Nursing Assessment: pt is aox3, pupils perrl, afebrile, resps easy and non labored, pt radial pulses strong and equal, cap refill < 3 secs. pt ambulatory with slow steady gait. abrasion noted to dorsal knee. mild swelling, sensation intact, ROM limited r/t pain. pedal pulses strong and equal. Physician History: Pt states about 2 hours ago she slipped in the mud at her mother's residence and fell on her right knee with resultant pain; denies numbness of her right foot. Allergies/Adverse Reactions: No Known Drug Allergies Allergy (Verified 08/09/24 20:36) Hx Tetanus, Diphtheria Vaccination/Date Given: Yes Hx Influenza Vaccination/Date Given: No Hx Pneumococcal Vaccination/Date Given: No Immunizations Up to Date: No Travel Risk - International Travel Have you traveled outside of the country in past 3 weeks: No - Emerging Infectious Disease Are you exhibiting symptoms associated with any current EIDs: No Symptoms: Abdominal Pain, Headaches/Body Aches/, Vomitting - Review of Systems Musculoskeletal: Joint Pain (right knee pain) - Past Medical History Pertinent Past Medical History: Yes Neurological History: No Pertinent History ENT History: No Pertinent History Cardiac History: No Pertinent History Respiratory History: No Pertinent History Endocrine Medical History: No Pertinent History Musculoskeletal History: No Pertinent History GI Medical History: No Pertinent History History: No Pertinent History Psycho-Social History: No Pertinent History Female Reproductive Disorders: No Pertinent History - Past Surgical History Past Surgical History: Yes Neuro Surgical History: No Pertinent History Cardiac: No Pertinent History Respiratory: No Pertinent History Gastrointestinal: Cholecystectomy Genitourinary: No Pertinent History Musculoskeletal: No Pertinent History Female Surgical History: Section, Tubal Ligation - Female History Hx Last Menstrual Period: 08/09/24 Hx Now: No - Social History Smoking Status: Never smoker Exposure to second hand smoke: No Drug Use: none - Social Determinants of Health Will the patient participate in the screening: Yes Do you worry about a steady place to live?: No Do you have any problems with any of the following?: No known problems In the past 12 months,have you had to go without utilities?: No Transportation Issues: No Has anyone in your support network made you feel unsafe?: No Have you or anyone in your house had to go w/o enough food: No - Nursing Vital Signs Nursing Vital Signs: Initial Vital Signs Pulse Rate 86 08/09/24 20:38 Respiratory Rate 18 08/09/24 20:38 Blood Pressure 109/62 08/09/24 20:38 O2 Sat by Pulse Oximetry 99 08/09/24 20:38 Pain Scale Pain Intensity 2 - Physical Exam General Appearance: alert Knees Exam: right knee: soft tissue tenderness (mild patellar tenderness and limited flexion of the right knee) Ankle Exam: right ankle: normal range of motion Foot Exam: right foot: normal range of motion Neuro/Tendon Exam: normal sensation Mental Status Exam: alert, cooperative Skin Exam: warm, dry SpO2 Interpretation: normal SpO2: 99 O2 Delivery: Room Air - Course Nursing assessment & vital signs reviewed: Yes - Radiology Exams Right Knee X-ray Interpretation: Teleradiologist Report, No Fracture Ordered Tests: Active Orders 24 hr Category Date Time Status Melchor Bandage Application -[facility] STAT Care 08/09/24 20:55 Active Crutches STAT Care 08/09/24 20:55 Active KNEE (3 VIEWS) Stat Exams 08/09/24 20:56 Completed Medication Summary Discontinued Medications Generic Name Dose Route Start Last Admin Trade Name Freq PRN Reason Stop Dose Admin Hydrocodone Bitart/Acetaminophen 2 tab 08/09/24 20:55 08/09/24 21:02 Hydrocodone/Apap 5/325 1 Tab Tablet PO 08/09/24 20:56 2 tab STAT ONE Administration Hydrocodone Bitart/Acetaminophen Confirm 08/09/24 21:00 Hydrocodone/Apap 5/325 1 Tab Tablet Administered 08/09/24 21:01 Dose 2 tab .ROUTE .STK-MED ONE - Progress Progress: unchanged Counseled pt/family regarding: diagnosis, need for follow-up, rad results Medical Desision Making - Diagnostic Testing Diagnostic test were ordered, analyzed, and reviewed by me: Yes Radiological Interpretation: Teleradiologist Report - Departure Departure Disposition: Home Clinical Impression: Right knee sprain Condition: Stable Critical Care Time: No Referrals: ANALILIA BECKMAN MD [Primary Care Provider] - Follow up/PCP as directed Instructions: Knee Sprain (DC) Additional Instructions: Follow up with private doctor tomorrow. No weight bearing on right foot for 2 days. Wear melchor wrap to right knee for the next 4 days. Use crutches for ambulation for the next 2 weeks. Elevate right knee 12 inches above heart level for the next 24 hours. Prescriptions: Ibuprofen 600 mg PO Q6H #20 tablet
[2024-08-09] MEDS ORDERED: NORCO 5/325 MG ONE (21:00)
[2024-08-09] MEDS: NORCO 5/325 MG PO ONE (21:02)
--- NOTE | 2024-08-09 23:12 | XRAY ---
CLINICAL HISTORY: pain COMPARISON: - TECHNIQUE: Radiograph of knee was acquired. FINDINGS: There is no evidence of acute fracture, dislocation or osseous lesion. The femorotibial joint space is preserved. The patellofemoral joint space is preserved. The soft tissues appear unremarkable. No evidence of joint effusion. IMPRESSION: 1. No acute osseous or soft tissue abnormality. Electronically Signed by: Lyle Cano MD. (08/09/2024 21:10:59 MAYITO)
[2024-08-09 23:21] VITALS: BP 98/58
[2024-08-09 23:31] VITALS: O2SAT 99
== END 2024-08-09 23:44 | disposition home or self-care (01) ==
LOC: ED 20:31
DX: S83.91XA Sprain of unspecified site of right knee, initial encounter (principal); W01.0XXA Fall on same level from slipping, tripping and stumbling without subsequent striking against object, initial encounter
CPT/HCPCS: 73562; 99283; A9270-GY